=== PATIENT | female | born 1955 | race African-American/Black ===

== ENCOUNTER 2017-11-30 11:03 | Inpatient (IN) | payer OTHER ==
[2017-11-30 11:35] VITALS: BMI 18.0
--- NOTE | 2017-11-30 13:01 | HP ---
CIWA Score - CIWA Score Nausea/Vomitin-Mild Nausea/No Vomiting Muscle Tremors: 3 Anxiety: 4-Mod. Anxious/Guarded Agitation: 1-Slight > Activity Paroxysmal Sweats: No Perspiration Orientation: 1-Uncertain about Date Tacttile Disturbances: 0-None Auditory Disturbances: 1-Very Mild Visual Disturbances: 1-Very Mild Sensitivity Headache: 1-Very Mild CIWA-Ar Total Score: 13 Admission ROS BHS - HPI Chief Complaint: I'm tired of drinking, I have a new grandbaby and I need to get myself together to enjoy her Allergies/Adverse Reactions: Allergies Allergy/AdvReac Type Severity Reaction Status Date / Time lisinopril Allergy Intermediate Swelling Verified 11/30/17 13:09 fish derived AdvReac Swelling Verified 11/26/15 12:17 History of Present Illness: 62 yo woman here for detox from alcohol - last time here 11/26/15 - no seizures but does have black outs. Exam Limitations: Clinical Condition - Ebola screening Have you traveled outside of the country in the last 21 days: No (N) Have you had contact with anyone from an Ebola affected area: No Have you been sick,other than usual withdrawal symptoms: No Do you have a fever: No - Review of Systems Constitutional: Loss of Appetite, Malaise, Night Sweats EENT: reports: Blurred Vision Respiratory: reports: No Symptoms reported Cardiac: reports: No Symptoms Reported GI: reports: Nausea, Indigestion : reports: Frequency Musculoskeletal: reports: Back Pain, Joint Pain Integumentary: reports: No Symptoms Reported Neuro: reports: Headache Endocrine: reports: No Symptoms Reported Hematology: reports: No Symptoms Reported Psychiatric: reports: Judgement Intact, Mood/Affect Appropiate, Anxious Other Systems: Reviewed and Negative Patient History - Patient Medical History Hx Anemia: No Hx Asthma: No Hx Chronic Obstructive Pulmonary Disease (COPD): No Hx Cardiac Disorders: No Hx Hypertension: Yes Hx Hypercholesterolemia: No HX Cerebrovascular Accident: Yes (IN 2006WITH LEFT LEG/RIGHT ARM NUMBNESS/ TINGLING. ON NEURONTIN) Hx Seizures: No Hx Diabetes: No Hx Gastrointestinal Disorders: No Hx Liver Disease: No Hx Genitourinary Disorders: No Hx Sexually Transmitted Disorders: No Hx Renal Disease (ESRD): No Hx Thyroid Disease: No Hx Human Immunodeficiency Virus (HIV): No Hx Hepatitis C: No Hx Depression: No Hx Suicide Attempt: No Hx Bipolar Disorder: Yes (no meds for years) Hx Schizophrenia: No - Patient Surgical History Past Surgical History: Yes Hx Neurologic Surgery: No Hx Cataract Extraction: No Hx Cardiac Surgery: No Hx Lung Surgery: No Hx Breast Surgery: No Hx Breast Biopsy: No Hx Abdominal Surgery: No Hx Appendectomy: No Hx Cholecystectomy: No Hx Genitourinary Surgery: No Hx Section: No Hx Orthopedic Surgery: No Other Surgical History: Tubal ligation in 1987 and fatty tissue removal left arm 2014 Anesthesia Reaction: No - PPD History Previous Implant?: Yes Documented Results: Positive w/o proof (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 History Hx Alcohol Use: Yes Hx Substance Use: Yes Substance Use Type: Alcohol, Marijuana Hx Substance Use Treatment: Yes (detox, rehab) - Substances Abused Alcohol Route: Oral Frequency: Daily Amount used: four cans 24 oz beer; 1 pint liquor Age of first use: 19 Date of Last Use: 11/30/17 Marijuana/Hashish Route: Smoking Frequency: Daily Amount used: 2 joints Age of first use: 19 Date of Last Use: 11/30/17 Family Disease History - Family Disease History Family Disease History: Diabetes: Mother (living, dementia,hx etoh), Heart Disease: Mother, CA: Father (, ), Other: Father, Mother, Brother (two living - healthy - etoh/marij), Son (age 32, epilepsy, smokes marij), Daughter ( age30, healthy, smokes marij) Admission Physical Exam BHS - Vital Signs Vital Signs: Vital Signs - 24 hr 11/30/17 11:31 Temperature 98.9 F Pulse Rate 122 H Respiratory 16 Rate Blood Pressure 152/103 - Physical General Appearance: Yes: Appropriately Dressed, Mild Distress, Thin, Anxious HEENTM: Yes: Hearing grossly Normal, Normocephalic, Normal Voice, Pharynx Normal Respiratory: Yes: Normal Breath Sounds, No Respiratory Distress Neck: Yes: No masses,lesions,Nodules, Supple Breast: Yes: Breast Exam Deferred Cardiology: Yes: Regular Rhythm, Regular Rate Abdominal: Yes: Non Tender, Flat, Soft Genitourinary: Yes: Frequency Back: Yes: Normal Inspection Musculoskeletal: Yes: full range of Motion, Gait Steady, Joint Stiffness Extremities: Yes: Within Normal Limits Neurological: Yes: Fully Oriented, Alert, Normal Mood/Affect Integumentary: Yes: Normal Color, Warm Lymphatic: Yes: Within Normal Limits - Diagnostic (1) Alcohol dependence with uncomplicated withdrawal Current Visit: Yes Status: Chronic (2) Cannabis dependence, uncomplicated Current Visit: Yes Status: Chronic (3) PPD positive, treated Current Visit: Yes Status: Chronic Comment: years ago treated (4) Essential hypertension Current Visit: Yes Status: Chronic (5) Nicotine dependence Current Visit: Yes Status: Chronic Qualifiers: Nicotine product type: cigarettes Substance use status: uncomplicated Qualified Code(s): F17.210 - Nicotine dependence, cigarettes, uncomplicated (6) Osteoarthritis Current Visit: Yes Status: Acute Qualifiers: Osteoarthritis location: multiple joints Osteoarthritis type: primary Qualified Code(s): M15.0 - Primary generalized (osteo)arthritis (7) Neuropathy, alcoholic Current Visit: Yes Status: Chronic Cleared for Admission [facility] - Detox or Rehab [facility] Level of Care: Medically Managed Detox Regimen/Protocol: Librium [facility] Breath Alcohol Content Breath Alcohol Content: 0.58 Urine Pregancy Test - Result Urine Test Results: Negative- NO Line Present Urine Drug Screen - Results Drug Screen Negative: No Urine Drug Screen Results: THC-Marijuana
[2017-11-30] MEDS ORDERED: guaiFENesin/D-METHORPHAN HB 10 ML UNIT-DOSE CUPS PO PRN (13:10)
[2017-11-30] MEDS ORDERED: hydrOXYzine PAMOATE 25 MG CAPSULE (FP) PO PRN (13:10)
[2017-11-30] MEDS ORDERED: MAGNESIUM CITRATE 300 ML BOTTLE PO PRN (13:10)
[2017-11-30] MEDS ORDERED: MENTHOL/PHENOL 1 EACH UD MM PRN (13:10)
[2017-11-30] MEDS ORDERED: MAGNESIUM HYDROX 2400MG/30ML ORAL SUSPENSION 30 ML CUP PO PRN (13:10)
[2017-11-30] MEDS ORDERED: IBUPROFEN 400 MG TABLET (FP) PO PRN (13:10)
[2017-11-30] MEDS ORDERED: LOPERAMIDE HCL 2 MG CAPSULE PO PRN (13:10)
[2017-11-30] MEDS ORDERED: P-EPHED 60MG/TRIPROLIDI 2.5MG TABLET PO PRN (13:10)
[2017-11-30] MEDS ORDERED: MAG HYDROX/AL HYDROX/SIMETH 30 ML UNIT-DOSE CUP PO PRN (13:10)
[2017-11-30] MEDS ORDERED: ACETAMINOPHEN 325 MG TABLET (FP) PO PRN (13:10)
[2017-11-30] MEDS ORDERED: chlordiazePOXIDE HCL 25 MG CAPSULE PO PRN (13:10)
[2017-11-30] MEDS ORDERED: chlordiazePOXIDE HCL 25 MG CAPSULE PO ONE (14:30)
[2017-11-30] MEDS: NICOTINE 14 MG/24 HOURS TOPICAL PATCH TD SCH (14:36)
[2017-11-30] MEDS: GABAPENTIN 300 MG CAPSULE (FP) PO SCH ×2 (14:37→22:46)
[2017-11-30] MEDS: amLODIPine BESYLATE 10 MG TABLET (FP) PO SCH (14:37)
[2017-11-30] MEDS: chlordiazePOXIDE HCL 25 MG CAPSULE PO SCH ×2 (17:59→22:46)
[2017-11-30 19:46] LABS: URINE APPEARANCE CLEAR; URINE BILIRUBIN NEGATIVE (NEGATIVE); URINE BLOOD NEGATIVE (NEGATIVE); URINE COLOR LTYELLOW; URINE GLUCOSE (UA) 1+ (NEGATIVE); URINE KETONE NEGATIVE (NEGATIVE); URINE LEUK ESTERASE NEGATIVE (NEGATIVE); URINE NITRITE NEGATIVE (NEGATIVE); URINE UROBILINOGEN NEGATIVE mg/dL (0.2-1.0)
[2017-11-30 19:50] LABS: URINE PROTEIN 1+ (NEGATIVE)
[2017-11-30 19:53] LABS: EPI CELLS RARE /HPF (FEW); URINE MUCUS RARE
[2017-11-30] MEDS: THIAMINE HCL 100 MG TABLET (FP) PO SCH (22:46)
[2017-12-01] MEDS: chlordiazePOXIDE HCL 25 MG CAPSULE PO SCH ×4 (05:57→22:51)
[2017-12-01] MEDS: GABAPENTIN 300 MG CAPSULE (FP) PO SCH ×3 (05:57→22:50)
--- NOTE | 2017-12-01 09:27 | PN ---
[facility] CIWA - CIWA Score Nausea/Vomitin-Mild Nausea/No Vomiting Muscle Tremors: 3 Anxiety: 3 Agitation: 3 Paroxysmal Sweats: 1-Minimal Palms Moist Orientation: 0-Oriented Tacttile Disturbances: 0-None Auditory Disturbances: 0-None Visual Disturbances: 0-None Headache: 0-None Present CIWA-Ar Total Score: 11 BHS Progress Note (SOAP) Subjective: tremor anxiety sweat Objective: 12/01/17 09:24 Vital Signs Temperature 97.9 F 12/01/17 06:30 Pulse Rate 74 12/01/17 06:30 Respiratory Rate 18 12/01/17 06:30 Blood Pressure 139/89 12/01/17 06:30 O2 Sat by Pulse Oximetry (%) Laboratory Last Values Urine Color Ltyellow 11/30/17 19:00 Urine Appearance Clear 11/30/17 19:00 Urine pH 6.0 (5.0-8.0) 11/30/17 19:00 Ur Specific [place] 1.013 (1.001-1.035) 11/30/17 19:00 Urine Protein 1+ (NEGATIVE) H 11/30/17 19:00 Urine Glucose (UA) 1+ (NEGATIVE) H 11/30/17 19:00 Urine Ketones Negative (NEGATIVE) 11/30/17 19:00 Urine Blood Negative (NEGATIVE) 11/30/17 19:00 Urine Nitrite Negative (NEGATIVE) 11/30/17 19:00 Urine Bilirubin Negative (NEGATIVE) 11/30/17 19:00 Urine Urobilinogen Negative mg/dL (0.2-1.0) 11/30/17 19:00 Ur Leukocyte Esterase Negative (NEGATIVE) 11/30/17 19:00 Urine WBC (Auto) <1 /hpf (3-5) 11/30/17 19:00 Urine RBC (Auto) None /hpf (0-3) 11/30/17 19:00 Ur Epithelial Cells Rare /HPF (FEW) 11/30/17 19:00 Urine Mucus Rare 11/30/17 19:00 lab noted Assessment: 12/01/17 09:26 withdrawal sx Plan: continue detox
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
[2017-12-01 10:27] LABS: HEMATOCRIT 39.7 % (32.4-45.2); HEMOGLOBIN 12.7 GM/dL (10.7-15.3); MCHC 32.1 g/dl (32.0-36.0); MEAN CELL VOLUME 93.3 fl (80-96); MEAN PLT VOLUME 7.2 fl (7.5-11.1); PLATELET COUNT 268 K/MM3 (134-434); RBC 4.25 M/mm3 (3.60-5.2); RDW 14.6 % (11.6-15.6); WHITE BLOOD COUNT 6.2 K/mm3 (4.0-10.0)
[2017-12-01 10:36] LABS: CHLORIDE 102 mmol/L (98-107); POTASSIUM 3.6 mmol/L (3.5-5.1); SODIUM 139 mmol/L (136-145)
[2017-12-01 10:43] LABS: ALBUMIN 3.9 g/dl (3.4-5.0); ALK PHOS 111 U/L (45-117); ANION GAP 6 (8-16); BILIRUBIN,TOTAL 0.6 mg/dL (0.2-1.0); BLOOD UREA NITROGEN 14 mg/dL (7-18); CALCIUM 9.4 mg/dL (8.5-10.1); CO2 31 mmol/L (21-32); CREATININE 0.6 mg/dL (0.55-1.02); GLUCOSE,RANDOM 100 mg/dL (74-106); SGOT/AST 27 U/L (15-37); SGPT/ALT 27 U/L (12-78); TOT PROT 8.1 g/dl (6.4-8.2)
[2017-12-01] MEDS: PRENATAL VITAMINS W/ FOLIC ACID TABLET (FP) PO SCH (10:56)
[2017-12-01] MEDS: amLODIPine BESYLATE 10 MG TABLET (FP) PO SCH (10:56)
[2017-12-01] MEDS: NICOTINE 14 MG/24 HOURS TOPICAL PATCH TD SCH (10:57)
[2017-12-01] MEDS: SERTRALINE HCL 50 MG TABLET (FP) PO SCH (10:58)
[2017-12-01] MEDS: TRIAMCINOLONE ACET 0.1% OINT 15 GM TUBE TP SCH ×4 (11:43→22:50)
--- NOTE | 2017-12-01 12:57 | EKG ---
Test Reason : Blood Pressure : / mmHG Vent. Rate : 105 BPM Atrial Rate : 105 BPM P-R Int : 138 ms QRS Dur : 068 ms QT Int : 362 ms P-R-T Axes : 066 052 066 degrees QTc Int : 478 ms SINUS TACHYCARDIA NONSPECIFIC ST ABNORMALITY ABNORMAL ECG NO PREVIOUS ECGS AVAILABLE Confirmed by Chris Gil ([id number]) on 12/01/2017 12:57:02 PM Referred By: Confirmed By:Chris Gil
[2017-12-01] MEDS: THIAMINE HCL 100 MG TABLET (FP) PO SCH (22:50)
[2017-12-01] MEDS: traZODone HCL 100 MG TABLET (FP) PO SCH (22:50)
[2017-12-02] MEDS: chlordiazePOXIDE HCL 25 MG CAPSULE PO SCH ×2 (06:10→11:22)
[2017-12-02] MEDS: GABAPENTIN 300 MG CAPSULE (FP) PO SCH ×3 (07:54→22:30)
[2017-12-02] MEDS: TRIAMCINOLONE ACET 0.1% OINT 15 GM TUBE TP SCH ×4 (11:17→22:29)
[2017-12-02] MEDS: SERTRALINE HCL 50 MG TABLET (FP) PO SCH (11:17)
[2017-12-02] MEDS: PRENATAL VITAMINS W/ FOLIC ACID TABLET (FP) PO SCH (11:17)
[2017-12-02] MEDS: NICOTINE 14 MG/24 HOURS TOPICAL PATCH TD SCH (11:18)
[2017-12-02] MEDS: amLODIPine BESYLATE 10 MG TABLET (FP) PO SCH (14:18)
--- NOTE | 2017-12-02 15:01 | PN ---
S CIWA - CIWA Score Nausea/Vomitin Muscle Tremors: 3 Anxiety: 3 Agitation: 3 Paroxysmal Sweats: 2 Orientation: 0-Oriented Tacttile Disturbances: 0-None Auditory Disturbances: 0-None Visual Disturbances: 0-None Headache: 0-None Present CIWA-Ar Total Score: 14 S Progress Note (SOAP) Subjective: leg pain sweats some shakes Objective: 12/02/17 14:59 Vital Signs Temperature 97.1 F L 12/02/17 14:43 Pulse Rate 82 12/02/17 14:43 Respiratory Rate 16 12/02/17 14:43 Blood Pressure 105/66 12/02/17 14:43 O2 Sat by Pulse Oximetry (%) Laboratory Last Values WBC 6.2 K/mm3 (4.0-10.0) 12/01/17 07:40 RBC 4.25 M/mm3 (3.60-5.2) 12/01/17 07:40 Hgb 12.7 GM/dL (10.7-15.3) 12/01/17 07:40 Hct 39.7 % (32.4-45.2) 12/01/17 07:40 MCV 93.3 fl (80-96) 12/01/17 07:40 MCH 30.0 pg (25.7-33.7) 12/01/17 07:40 MCHC 32.1 g/dl (32.0-36.0) 12/01/17 07:40 RDW 14.6 % (11.6-15.6) 12/01/17 07:40 Plt Count 268 K/MM3 (134-434) 12/01/17 07:40 MPV 7.2 fl (7.5-11.1) L 12/01/17 07:40 Sodium 139 mmol/L (136-145) 12/01/17 07:40 Potassium 3.6 mmol/L (3.5-5.1) 12/01/17 07:40 Chloride 102 mmol/L (98-107) 12/01/17 07:40 Carbon Dioxide 31 mmol/L (21-32) 12/01/17 07:40 Anion Gap 6 (8-16) L 12/01/17 07:40 BUN 14 mg/dL (7-18) 12/01/17 07:40 Creatinine 0.6 mg/dL (0.55-1.02) 12/01/17 07:40 Creat Clearance w eGFR > 60 (>60) 12/01/17 07:40 Random Glucose 100 mg/dL (74-106) 12/01/17 07:40 Calcium 9.4 mg/dL (8.5-10.1) 12/01/17 07:40 Total Bilirubin 0.6 mg/dL (0.2-1.0) 12/01/17 07:40 AST 27 U/L (15-37) 12/01/17 07:40 ALT 27 U/L (12-78) 12/01/17 07:40 Alkaline Phosphatase 111 U/L (45-117) 12/01/17 07:40 Total Protein 8.1 g/dl (6.4-8.2) 12/01/17 07:40 Albumin 3.9 g/dl (3.4-5.0) 12/01/17 07:40 Urine Color Ltyellow 11/30/17 19:00 Urine Appearance Clear 11/30/17 19:00 Urine pH 6.0 (5.0-8.0) 11/30/17 19:00 Ur Specific [place] 1.013 (1.001-1.035) 11/30/17 19:00 Urine Protein 1+ (NEGATIVE) H 11/30/17 19:00 Urine Glucose (UA) 1+ (NEGATIVE) H 11/30/17 19:00 Urine Ketones Negative (NEGATIVE) 11/30/17 19:00 Urine Blood Negative (NEGATIVE) 11/30/17 19:00 Urine Nitrite Negative (NEGATIVE) 11/30/17 19:00 Urine Bilirubin Negative (NEGATIVE) 11/30/17 19:00 Urine Urobilinogen Negative mg/dL (0.2-1.0) 11/30/17 19:00 Ur Leukocyte Esterase Negative (NEGATIVE) 11/30/17 19:00 Urine WBC (Auto) <1 /hpf (3-5) 11/30/17 19:00 Urine RBC (Auto) None /hpf (0-3) 11/30/17 19:00 Ur Epithelial Cells Rare /HPF (FEW) 11/30/17 19:00 Urine Mucus Rare 11/30/17 19:00 RPR Titer Nonreactive (NONREACTIVE) 12/01/17 07:40 labs noted Assessment: 12/02/17 15:01 withdrawal sx Plan: continue detox
--- NOTE | 2017-12-02 16:28 | PN ---
BHS Progress Note Note: bmi 18 collaborated with dietitian ensure plus 120 ml tid
[2017-12-02] MEDS: chlordiazePOXIDE 5 MG CAPSULE PO SCH ×2 (17:19→22:30)
[2017-12-02] MEDS: THIAMINE HCL 100 MG TABLET (FP) PO SCH (22:29)
[2017-12-02] MEDS: traZODone HCL 100 MG TABLET (FP) PO SCH (22:30)
[2017-12-03] MEDS: chlordiazePOXIDE 5 MG CAPSULE PO SCH ×2 (07:56→10:58)
[2017-12-03] MEDS: GABAPENTIN 300 MG CAPSULE (FP) PO SCH ×3 (07:57→22:22)
[2017-12-03] MEDS: amLODIPine BESYLATE 10 MG TABLET (FP) PO SCH (10:58)
[2017-12-03] MEDS: NICOTINE 14 MG/24 HOURS TOPICAL PATCH TD SCH (10:58)
[2017-12-03] MEDS: TRIAMCINOLONE ACET 0.1% OINT 15 GM TUBE TP SCH ×4 (10:58→22:21)
[2017-12-03] MEDS: SERTRALINE HCL 50 MG TABLET (FP) PO SCH (10:58)
[2017-12-03] MEDS: PRENATAL VITAMINS W/ FOLIC ACID TABLET (FP) PO SCH (10:58)
--- NOTE | 2017-12-03 14:45 | PN ---
S CIWA - CIWA Score Nausea/Vomitin-Mild Nausea/No Vomiting Muscle Tremors: 3 Anxiety: 2 Agitation: 3 Paroxysmal Sweats: 2 Orientation: 0-Oriented Tacttile Disturbances: 1-Very Mild Itch/Numbness Auditory Disturbances: 0-None Visual Disturbances: 2-Mild Sensitivity Headache: 2-Mild CIWA-Ar Total Score: 16 S Progress Note (SOAP) Objective: 12/03/17 14:45 Laboratory Tests 11/30/17 12/01/17 12/01/17 19:00 07:40 07:40 WBC 6.2 RBC 4.25 Hgb 12.7 Hct 39.7 MCV 93.3 MCH 30.0 MCHC 32.1 RDW 14.6 Plt Count 268 MPV 7.2 L Sodium 139 Potassium 3.6 Chloride 102 Carbon Dioxide 31 Anion Gap 6 L BUN 14 Creatinine 0.6 Creat Clearance w eGFR > 60 Random Glucose 100 Calcium 9.4 Total Bilirubin 0.6 AST 27 ALT 27 Alkaline Phosphatase 111 Total Protein 8.1 Albumin 3.9 Urine Color Ltyellow Urine Appearance Clear Urine pH 6.0 Ur Specific [place] 1.013 Urine Protein 1+ H Urine Glucose (UA) 1+ H Urine Ketones Negative Urine Blood Negative Urine Nitrite Negative Urine Bilirubin Negative Urine Urobilinogen Negative Ur Leukocyte Esterase Negative Urine WBC (Auto) <1 Urine RBC (Auto) None Ur Epithelial Cells Rare Urine Mucus Rare RPR Titer 12/01/17 07:40 WBC RBC Hgb Hct MCV MCH MCHC RDW Plt Count MPV Sodium Potassium Chloride Carbon Dioxide Anion Gap BUN Creatinine Creat Clearance w eGFR Random Glucose Calcium Total Bilirubin AST ALT Alkaline Phosphatase Total Protein Albumin Urine Color Urine Appearance Urine pH Ur Specific [place] Urine Protein Urine Glucose (UA) Urine Ketones Urine Blood Urine Nitrite Urine Bilirubin Urine Urobilinogen Ur Leukocyte Esterase Urine WBC (Auto) Urine RBC (Auto) Ur Epithelial Cells Urine Mucus RPR Titer Nonreactive Assessment: 12/03/17 14:45 withdrawal Plan: detox protocol
[2017-12-03] MEDS: chlordiazePOXIDE HCL 10 MG CAPSULE PO SCH ×2 (17:20→22:22)
--- NOTE | 2017-12-03 17:42 | PN ---
Psychiatric Progress Note Vital Signs: Vital Signs Period Temp Pulse Resp BP Sys/Carrillo Pulse Ox Last 24 Hr 98.1 F-100 F 80-103 16-18 118-153/74-90 Date of Session: 12/03/17 Chief Complaint:: BHS HPI: Pt. admitted to for alcohol and marijuana dependence. ROS: Unremarkable Current Medications: Active Medications Generic Name Dose Route Start Last Admin Trade Name Freq PRN Reason Stop Dose Admin Acetaminophen 650 mg 11/30/17 13:10 Tylenol - PO Q4H PRN FEVER Al Hydroxide/Mg Hydroxide 30 ml 11/30/17 13:10 Mylanta Oral Suspension - PO Q6H PRN DYSPEPSIA Amlodipine Besylate 10 mg 11/30/17 13:15 12/03/17 10:58 Norvasc - PO 10 mg DAILY ALEXANDR Administration Chlordiazepoxide HCl 10 mg 12/03/17 17:00 12/03/17 17:20 Librium - PO 12/04/17 11:01 Not Given T7H-TFH ALEXANDR Eucalyptus/Menthol/Phenol/Sorbitol 1 each 11/30/17 13:10 Cepastat Lozenge - MM Q4H PRN SORE THROAT Gabapentin 300 mg 11/30/17 14:00 12/03/17 15:17 Neurontin - PO Not Given TID ALEXANDR Guaifenesin 10 ml 11/30/17 13:10 Robitussin Dm - PO Q6H PRN COUGH Hydroxyzine Pamoate 25 mg 11/30/17 13:10 Vistaril - PO Q4H PRN AGITATION Ibuprofen 400 mg 11/30/17 13:10 12/01/17 05:59 Motrin - PO 400 mg Q6H PRN Administration PAIN LEVEL 4-6 Loperamide HCl 4 mg 11/30/17 13:10 Imodium - PO Q6H PRN DIARRHEA Magnesium Citrate 300 ml 11/30/17 13:10 Citroma - PO Q48H PRN CONSTIPATION Magnesium Hydroxide 30 ml 11/30/17 13:10 Milk Of Magnesia - PO DAILY PRN CONSTIPATION Nicotine 14 mg 11/30/17 13:15 12/03/17 10:58 Nicoderm Patch - TD 14 mg DAILY ALEXANDR Administration Multivit/Folic Acid/Iron 1 tab 12/01/17 10:00 12/03/17 10:58 Vitamins (Sjr) - PO 1 tab DAILY ALEXANDR Administration Pseudoephedrine/Triprolidine 1 combo 11/30/17 13:10 Actifed - PO TID PRN NASAL CONGESTION Sertraline HCl 50 mg 12/01/17 10:45 12/03/17 10:58 Zoloft - PO 50 mg DAILY ALEXANDR Administration Thiamine HCl 100 mg 11/30/17 22:00 12/02/17 22:29 Vitamin B1 - PO 100 mg HS ALEXANDR Administration Trazodone HCl 50 mg 12/03/17 22:00 Desyrel - PO HS ALEXANDR Triamcinolone Acetonide 1 applic 12/01/17 10:00 12/03/17 17:19 Aristocort 0.1% Ointment - TP Not Given QID [facility] Medication(s) Change(s): Yes. Trazodone 100mg reduced to 50mg due to oversedation as per nurse. Current Side Effect: No Lab tests ordered: No Lab tests reviewed: Yes Provider note:: Postdoctoral Research Associate approached patient concering psychiatric reconsultation. Pt. worried about discharge. Pt. reports adequate sleep. As per nursing staff, patient is oversedated and was unable to receive librium last night. Pt. reports sleeping well, but is agreeable to a decrease in trazodone to minimize oversedation. Sleep hygiene provided. Pt. satisfied and receptive to feedback. Trazodone 50mg qhs ordered for tonight. Total face to face time:: 25 Mental Status Exam - Mental Status Exam Alert and Oriented to: Time, Place, Person Cognitive Function: Good Patient Appearance: Unkempt Mood: Sad Affect: Normal Range Patient Behavior: Cooperative Speech Pattern: Appropriate Voice Loudness: Normal Thought Process: Goal Oriented Thought Disorder: Not Present Hallucinations: Denies Suicidal Ideation: Denies Homicidal Ideation: Denies Insight/Judgement: Poor Sleep: Well (As per nursing staff, patient is oversedated. Trazodone to be decreased to 50mg.), Fair Appetite: Good Muscle strength/Tone: Normal Gait/Station: Normal Psychiatric Treatment Plan - Problem List (1) Alcohol dependence with uncomplicated withdrawal Current Visit: Yes (2) Cannabis dependence, uncomplicated Current Visit: Yes (3) Substance induced mood disorder Current Visit: Yes (4) Substance-induced sleep disorder Current Visit: Yes (5) Nicotine dependence Current Visit: Yes Qualifiers: Nicotine product type: cigarettes Substance use status: uncomplicated Qualified Code(s): F17.210 - Nicotine dependence, cigarettes, uncomplicated
[2017-12-03] MEDS ORDERED: traZODone HCL 50 MG TABLET (FP) PO SCH (22:00)
[2017-12-03] MEDS: THIAMINE HCL 100 MG TABLET (FP) PO SCH (22:22)
[2017-12-04] MEDS: chlordiazePOXIDE HCL 10 MG CAPSULE PO SCH (06:48)
[2017-12-04] MEDS: GABAPENTIN 300 MG CAPSULE (FP) PO SCH (06:48)
[2017-12-04 06:53] VITALS: BP 117/83; PULSE 80; TEMP 97.5
--- NOTE | 2017-12-04 08:49 | DS ---
[facility] Detox Discharge Summary Admission Date: 11/30/17 Discharge Date: 12/04/17 - History Present History: Alcohol Dependence, Cannabis Dependence - Physical Exam Results Vital Signs: Vital Signs Temperature 97.5 F L 12/04/17 06:00 Pulse Rate 80 12/04/17 06:00 Respiratory Rate 16 12/04/17 06:00 Blood Pressure 117/83 12/04/17 06:00 O2 Sat by Pulse Oximetry (%) - Treatment Hospital Course: Detox Protocol Followed, Detoxed Safely, Responded well, Discharged Condition Good, Rehab Referral Accepted Patient has Accepted a Rehab Referral to: [facility]/ [facility] - Medication Discharge Medications: Ambulatory Orders Amlodipine Besylate [Norvasc -] 10 mg PO DAILY #30 tablet 11/26/15 Gabapentin [Neurontin -] 300 mg PO TID #90 capsule 12/23/15 - Diagnosis (1) Alcohol dependence with uncomplicated withdrawal Current Visit: Yes Status: Chronic (2) Cannabis dependence, uncomplicated Current Visit: Yes Status: Chronic (3) Essential hypertension Current Visit: Yes Status: Chronic (4) Neuropathy, alcoholic Current Visit: Yes Status: Chronic (5) Nicotine dependence Current Visit: Yes Status: Chronic Qualifiers: Nicotine product type: cigarettes Substance use status: uncomplicated Qualified Code(s): F17.210 - Nicotine dependence, cigarettes, uncomplicated (6) Osteoarthritis Current Visit: Yes Status: Chronic Qualifiers: Osteoarthritis location: multiple joints Osteoarthritis type: primary Qualified Code(s): M15.0 - Primary generalized (osteo)arthritis (7) Dermatitis Current Visit: No Status: Chronic - AMA Did Patient Leave Against Medical Advice: No
== END 2017-12-04 08:52 | disposition home or self-care (01) | DRG 897 ==
LOC: YASAS 11:03 → Y6N 13:42
PROVIDERS: ADMIT Internal Medicine; ATTEND Internal Medicine
PROC: HZ2ZZZZ Detoxification Services for Substance Abuse Treatment (ICD-10-PCS; principal; 2017-11-30)
DX: F10.230 Alcohol dependence with withdrawal, uncomplicated (principal); F19.282 Other psychoactive substance dependence with psychoactive substance-induced sleep disorder; F12.20 Cannabis dependence, uncomplicated; F17.210 Nicotine dependence, cigarettes, uncomplicated; F19.24 Other psychoactive substance dependence with psychoactive substance-induced mood disorder; F39 Unspecified mood [affective] disorder; F31.9 Bipolar disorder, unspecified; I10 Essential (primary) hypertension; G62.1 Alcoholic polyneuropathy; M15.0 Primary generalized (osteo)arthritis; L30.9 Dermatitis, unspecified; L40.9 Psoriasis, unspecified; R76.11 Nonspecific reaction to tuberculin skin test without active tuberculosis; Z86.73 Personal history of transient ischemic attack (TIA), and cerebral infarction without residual deficits
CPT/HCPCS: 36415; 71046-TC; 80053; 81003; 81015; 85027; 86593; 93005; 93010